=== PATIENT | female | born 1945 | race Caucasian/White ===

== ENCOUNTER 2018-01-08 07:45 | Emergency (ER) | payer MEDICARE, BC ==
--- OUTSIDE RECORDS SUMMARY | 2018-01-08 07:50 | XMS REPORT | Continuity of Care Document ---
:1945 External Reference #:[id number] Author Name Cheikh Lynn M.D. Address [address] [place] [address] Care Team Providers Name Role Phone Mulu Brown MD Care Team Information Substance Abuse Therapist Unavailable Mulu Brown MD Primary Care Physician Unavailable Payers Type Date Identification Numbers Payment Provider Subscriber Policy Number: [id number] Medicare [place] Shadia Conner PayID: [id number] [address] [place] [address] Policy Number: [id number] /BS [place] Shadia Conner PayID: [id number] [address] [address] [place] [address] Advance Directives Description No Information Available Problems Date Description Provider Status Onset: 08/19/2016 Presence of intraocular lens Cheikh Lynn M.D. Active Onset: 08/19/2016 Open-angle glaucoma - borderline Cheikh Lynn M.D. Active Family History Date Family Member(s) Problem(s) Comments General Glaucoma General Brother General RD-Brother, Uncle Father No Current Problems Mother Age-Related Macular Degeneration Mother Cataract Social History Type Date Description Comments Sex Unknown ETOH Use Occasionally consumes alcohol Tobacco Use Start: Unknown Patient has never smoked Smoking Status Reviewed: 12/26/17 Patient has never smoked Allergies, Adverse Reactions, Alerts Date Description Reaction Status Severity Comments 08/19/2016 Erythromycin Active 08/19/2016 Statins Active 12/26/2017 Doxycycline Active Medications Medication Date Status Form Strength Qnty SIG Indications Ordering Provider Hydrochlorothiazide // Active Capsules 12.5mg Unknown 0000 Valsartan 00/ Active Tablets 80mg Unknown 0000 Citalopram / Active Tablets 20mg Unknown Hydrobromide 0000 Vitamin C ER 00// Active Capsules 500mg Unknown 0000 ER Glucosamine / Active Capsules 1500Com Unknown Chondroitin 1500 0000 Complex Vitamin D 00/00/ Active Tablets 1000Unit take Unknown 0000 one capsul e/tabl et daily by mouth Ketorolac 12/19/ Hx Solution 0.4% 5ml 1gtt H40.013 Cheikh Luke 2016 - rafael Lynn 12/26/ shell Schmidt twice a day prn Mupirocin / Hx Ointment 2% Unknown 0000 - 2017 Immunizations Description No Information Available Vital Signs Date Vital Result Comment 12/26/2017 9:25am Intraocular Pressure Right Eye 17 mmHg Intraocular Pressure Left Eye 17 mmHg 03/31/2017 8:57am Intraocular Pressure Right Eye 15 mmHg Intraocular Pressure Left Eye 14 mmHg 12/19/2016 3:09pm Intraocular Pressure Right Eye 15 mmHg Intraocular Pressure Left Eye 14 mmHg 08/19/2016 1:27pm Intraocular Pressure Right Eye 16 mmHg Intraocular Pressure Left Eye 17 mmHg Cornea Thickness Left Eye 592 m Cornea Thickness Right Eye 582 m Pachymetry adjusted IOP Right Eye -3 Pachymetry adjusted IOP Left Eye -2 Results Description No Information Available Procedures Date Code Description Status 12/26/2017 46153 Fundus Photography W/Interpretation & Report Completed 12/26/2017 69650 Ophthalmoscopy Subsequent Completed 12/26/2017 93138 Eye Exam Est Comprehensive Completed 03/31/2017 47915 Visual Field Exam Extended, Unilateral Or Bilateral Completed 03/31/2017 57675 Eye Exam Est Intermediate Completed 12/19/2016 73007 Oct, Optic Nerve Completed 12/19/2016 29972 Visual Field Exam Extended, Unilateral Or Bilateral Completed 12/19/2016 78753 Eye Exam Est Intermediate Completed 08/19/2016 36371 Fundus Photography W/Interpretation & Report Completed 08/19/2016 68295 Ophthalmoscopy Initial Completed 08/19/2016 66643 Refraction Completed 08/19/2016 84013 Eye Exam New Comprehensive Completed 08/19/2016 19928 Corneal Pachymetry, Unilateral/Bilateral Completed Encounters Description No Information Available Plan of Treatment 12/26/2017 - Cheikh Lynn M.D.H40.013 Open angle with borderline findings, low risk, kmlnrerruN77.491 Other secondary cataract, right eyeH26.492 Other secondary cataract, left eyeH04.123 Dry eye syndrome of bilateral lacrimal glandsFollow up:yag cap od, then os then 1 wk f/u Dr Urena
[2018-01-08 07:55] VITALS: BP 134/73
--- NOTE | 2018-01-08 08:08 | UC ---
Eye Complaint HPI - HPI Summary HPI Summary: 72-year-old woman comes in today with a chief complaint of bilateral eye discharge and irritation. Her eyes were bothering her a little bit yesterday but not much. Overnight she woke up with her eyes crusted shut and a lot of discharge. She has had minimal runny nose since yesterday. No known allergies and no trauma. The eyes are itchy. No fevers or chills. Patient does not believe it's environmental allergies. - History of Current Complaint Chief Complaint: UCEye Stated Complaint: EYE COMPLAINT Time Seen by Provider: 01/08/18 07:59 Pain Intensity: 8 - Allergies/Home Medications Allergies/Adverse Reactions: Allergies Allergy/AdvReac Type Severity Reaction Status Date / Time doxycycline Allergy Hives Verified 01/08/18 07:55 erythromycin base Allergy Nausea And Verified 01/08/18 07:55 Vomiting lipitor Allergy Muscle Ache Uncoded 04/03/15 08:03 Home Medications: Home Medications Sertraline HCl [Zoloft] 15 mg PO DAILY 01/08/18 [History Confirmed 01/08/18] PMH/Surg Hx/FS Hx/Imm Hx Cardiovascular History: Hypertension - Surgical History Surgical History: Yes Surgery Procedure, Year, and Place: 1994 HYSTERECTOMY, [place], [place]. [place] [facility] [place] Family History Known Family History: Negative: Diabetes - Social History Alcohol Use: Rare Alcohol Amount: SOCIAL Substance Use Type: None Smoking Status (MU): Never Smoked Tobacco Have You Smoked in the Last Year: No Review of Systems Constitutional: Negative Skin: Negative Eyes: Drainage, Eye Redness ENT: Nasal Discharge Respiratory: Negative Cardiovascular: Negative Gastrointestinal: Negative Neurovascular: Negative Musculoskeletal: Negative Neurological: Negative Psychological: Negative Is Patient Immunocompromised?: No All Other Systems Reviewed And Are Negative: Yes Physical Exam Triage Information Reviewed: Yes Appearance: Well-Appearing, No Pain Distress, Well-Nourished Vital Signs: Initial Vital Signs Temp 98 F 01/08/18 07:50 Pulse 56 01/08/18 07:50 Resp 18 01/08/18 07:50 BP 134/73 01/08/18 07:50 Pulse Ox 95 01/08/18 07:50 Vital Signs Reviewed: Yes Eyes: Positive: Conjunctiva Inflamed, Discharge ENT: Positive: Pharynx normal, Nasal drainage, TMs normal Neck exam: Normal Neck: Positive: Supple Respiratory Exam: Normal Respiratory: Positive: Lungs clear, Normal breath sounds, No respiratory distress Cardiovascular Exam: Normal Cardiovascular: Positive: RRR Musculoskeletal Exam: Normal Musculoskeletal: Positive: Strength Intact, ROM Intact Neurological Exam: Normal Neurological: Positive: Alert, Muscle Tone Normal Psychological Exam: Normal Psychological: Positive: Age Appropriate Behavior Skin Exam: Normal Eye Complaint Course/Dx - Differential Dx/Diagnosis Provider Diagnoses: CONJUNCTIVITIS Discharge - Sign-Out/Discharge Documenting (check all that apply): Patient Departure All imaging exams completed and their final reports reviewed: No Studies - Discharge Plan Condition: Stable Disposition: HOME Prescriptions: Tobramycin 0.3% OPHTH.NAMITA* 1 drop BOTH EYES Q4H #1 btl Patient Education Materials: Conjunctivitis (ED) Referrals: Mulu Brown MD [Primary Care Provider] - Additional Instructions: FOLLOW UP WITH YOUR DOCTOR IF NOT COMPLETELY IMPROVED. GET RECHECKED FOR ANY WORSENING OF YOUR CONDITION OR QUESTIONS OR CONCERNS. - Billing Disposition and Condition Condition: STABLE Disposition: Home
== END 2018-01-08 08:16 | disposition home or self-care (01) ==
LOC: UCEAST 07:45
DX: H10.9 Unspecified conjunctivitis (principal); I10 Essential (primary) hypertension; Z88.1 Allergy status to other antibiotic agents; Z88.8 Allergy status to other drugs, medicaments and biological substances
CPT/HCPCS: 99212; G0463

== ENCOUNTER 2019-01-07 11:54 | Day surgery (SDC) | payer MEDICARE, BC ==
[~2019-01-07 11:54] MED LIST: Buffered Lidocaine 1% SYRIN* 1 ML/SYRINGE INTRADERM ONE; Lactated Ringers 1000 ML Bag* 1,000 ML IV SCH
[2019-01-07] MEDS ORDERED: ceFAZolin 2 GM PREMIX in ORs 2 GM/50 ML BAG ONE (12:02)
[2019-01-07] MEDS ORDERED: Propofol* 10 MG/ML 20 ML BTL ONE (13:43)
[2019-01-07] MEDS ORDERED: Lidocaine 2% PF * 5 ML VIAL ONE (13:43)
[2019-01-07] MEDS ORDERED: Bupivacaine 0.25% SDV* 30 ML ONE (13:45)
[2019-01-07] MEDS ORDERED: fentaNYL* 50 MCG/ML 2 ML VIAL (100 MCG VIAL) ONE ×2 (13:48→15:46)
[2019-01-07] MEDS ORDERED: Dexamethasone IV* 4 MG/ML 1 ML (4 MG) ONE (13:58)
[2019-01-07] MEDS ORDERED: Naloxone* 0.4 MG/ML 1 ML VIAL IV PRN (14:38)
[2019-01-07] MEDS ORDERED: DiMENhydriNATE IV* 50 MG/ML VIAL IV PUSH PRN (14:38)
[2019-01-07] MEDS ORDERED: Acetaminophen IV 1GM/100ML * 1,000 MG/100 ML VIAL IVPB ONE (14:38)
[2019-01-07] MEDS: fentaNYL* 50 MCG/ML 2 ML VIAL (100 MCG VIAL) IV PRN ×4 (15:47→16:29)
[2019-01-07] MEDS ORDERED: Acetaminophen IV 1GM/100ML * 100 ML ONE (15:59)
[2019-01-07 17:31] VITALS: BP 148/81
--- NOTE | 2019-01-08 02:34 | OP ---
DATE OF OPERATION: 01/07/19 - [facility] DATE OF : 47 SURGEON: Berto Sawyer MD MUSEUM REGISTRAR: CY Guzman. An autopsy assistant was needed for the entirety of the procedure to aid in positioning of the arm and retraction. ANESTHESIOLOGIST: Dr. Saunders. ANESTHESIA: General. PRE-OP DIAGNOSES: 1. 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 2. 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 POST-OP DIAGNOSES: 1. 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 2. 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 OPERATIVE PROCEDURE: 1. Left thumb carpometacarpal arthroplasty with trapeziectomy. 2. Distally based flexor carpi radialis tendon transfer for thumb suspension and tendon interposition. 3. Left thumb metacarpophalangeal joint capsulodesis. INDICATIONS: Ms. Conner has the basal joint arthritis. It causes her quite a bit of pain. She also has hypertension laxity at the MCP joint. She has been dealing with this for years. She is finally at a point where she wants to have surgery. We discussed risks and benefits. She wants to proceed. ESTIMATED BLOOD LOSS: 2 mL. COMPLICATIONS: None. FINDINGS: See above and below. DESCRIPTION OF PROCEDURE: Ms. Conner was seen in the preoperative holding area. The correct site, side, and procedures were identified. We came back to the operating room. The arm was prepped and draped in the usual fashion. A time-out was performed. The arm was exsanguinated with the Esmarch and the tourniquet was inflated. I went ahead and made a 2 to 3 cm incision over the dorsal radial thumb base. Dissection was carried down longitudinally to preserve the traversing sensory nerves. The subperiosteal and capsular flaps were raised to expose the dorsum of the trapezium. The carpometacarpal joint, the scaphotrapezial joint, and the trapeziotrapezoid joint were all identified. The soft tissue about these joints released. The rongeur was then used to remove the trapezium in its entirety in piecemeal fashion. The FCR tendon was preserved to the base of the wound. Once I had fully excised that, I did examine the scaphotrapezoid joint, that looked okay. I then created a bone tunnel from the dorsal radial metacarpal base exiting out the volar ulnar articular surface near the insertion of the FCR tendon using sequentially larger drill bits. I then turned my attention to harvesting the tendon. I made a 1 cm incision just proximal to the wrist flexion crease over the FCR tendon. The tendon sheath was opened. The tendon was brought up out the wound and split longitudinally, and a 26 gauge wire was passing into the tendon split. I then made 2 more transverse incisions, each about 7 or 8 cm proximal to the left. The tendon sheath was released along the length of the tendon under the skin and then a Marjorie clamp was used to retrieve the tendon in the distal wound and then pulled back under the skin until I released half the tendon in the musculotendinous junction. The free end of the tendon was then delivered up into the distal wound. The proximal aspects were stripped of its muscular remnants and secured with a 3-0 Ethibond suture. The free end of the tendon was then shuttled down into the thumb base wound using two 26 gauge wires. Tendon split was taken all the way to the base of the second metacarpal. The tendon was brought through the bone tunnel back around the intact limb and then maximum tension was set as the tendon transfer was secured with 3 figure-of- eight 3-0 Ethibond sutures, the first sewing all 3 limbs of the tendon transfer together, the last 2 sewing intact limb to intact limb. The remainder of the tendon tail was rolled up as a bone, secured with a 3-0 Ethibond suture, and then docked as an interposition between the base of the metacarpal and the distal pole of the scaphoid at the side of the trapeziectomy. The wound was then irrigated out. The capsule was closed with 4-0 Vicryl suture. The radial artery was preserved throughout the entirety of the case. The skin was closed with 4-0 nylon suture. I then turned my attention to the capsulodesis. I raised an ulnarly based V- shaped flap off the anterior aspect of the MCP joint. Dissection was carried down. Both digital nerves were identified and protected throughout the entirety of the procedure. I then used the tenotomy scissors to release the A1 erica. The tendon was retracted out of the way. I raised a distally based U flap off the volar plate. This was mobilized in its entirety. I then placed two DePuy Mini Mitek suture anchors in the metacarpal neck just proximal to the metacarpal head. The 2- 0 Ethibond suture of those suture anchors was used to sew up into the volar plate in a little whipstitch and then that was tied down nice and tight so as to give a nice 30-degree block to MCP joint extension. After I had secured both sutures, everything was looking very good. Once the wound was irrigated out, the tendon and nerves were all nicely intact. The skin was closed with 4-0 nylon suture. 0.25% Marcaine was infiltrated all around the operative wounds. The wounds were dressed with Xeroform, 4x4s, sterile Webril, and then a thumb spica splint with the DIP joint slightly free was applied. I also gave some protection to the MCP joint, protecting the MCP joint about 30 degrees of flexion. Tourniquet was deflated and the hand pinked up immediately. She was taken to the recovery room in stable condition. [id number]/[facility] #: [id number] TARYN
== END 2019-01-07 17:35 | disposition home or self-care (01) ==
LOC: OREAST 11:54
PROVIDERS: ATTEND Orthopaedic Surgery Hand Surgery
DX: M18.12 Unilateral primary osteoarthritis of first carpometacarpal joint, left hand (principal); M20.092 Other deformity of left finger(s); I10 Essential (primary) hypertension; E78.00 Pure hypercholesterolemia, unspecified; M19.90 Unspecified osteoarthritis, unspecified site; K21.9 Gastro-esophageal reflux disease without esophagitis; F32.9 Major depressive disorder, single episode, unspecified; G47.33 Obstructive sleep apnea (adult) (pediatric); E78.5 Hyperlipidemia, unspecified
CPT/HCPCS: 88304; 88311; C1713; J0690; J1100; J2704; J3010; J3490